=== PATIENT | male | born 1960 | race Caucasian/White ===

== ENCOUNTER 2021-09-01 11:40 | Day surgery (SDC) | payer BC ==
--- OUTSIDE RECORDS SUMMARY | 2021-08-17 16:26 | XMSREPORT | Referral Summary ---
:1960 Author Organization [facility] Address [address] [place] [address] Care Team Providers Name Role Phone Provider, Attributed RESOURCE Attributed Provider Unavailab Franco Lentz PA-C Primary Care Provider Reason for Referral Transitions of Care (Routine) Status Reason Specialty Diagnoses / Referred By Referred To Procedures Contact Contact New Request Service Not Diagnoses Screening for colon cancer Priya Mejía, Health, Chi Available at [facility] [address] [place] [id number] Phone: Fax: Reason for Visit Reason Comments Medication Management Encounter Details Date Type Department Care Team Description 08/15/2021 Office Visit [facility] Priya Mejía, COPD mixed t ype (HCC) (Primary Dx); [facility] Other polyneuropathy; [address] [place] [id number] [place] [phone] Allergies No Known Active Allergiesdocumented as of this encounter (statuses as of 08/15/2021) Medications Medication Sig Dispensed Refills Start End Date Status Date cyanocobalamin Take 1,000 mcg 0 Active (VITAMIN B-12) 1000 by mouth 1 mcg tablet time per day vitamin D3, Take 2,000 0 Active cholecalciferol, Units by mouth 2000 unit tablet 1 time per day Multiple Take 1 tablet 0 Active Vitamins-Minerals by mouth 1 (MULTIVITAMIN time per day THERAPEUTIC WITH MINERALS) tablet nicotine polacrilex Place 1 27 each Active (NICOTINE MINI) 4 lozenge (4 mg) 0 MG LOZGIndications: into mouth Tobacco use every 2 hours as needed for smoking cessation acetaminophen Take 1,330 mg 0 Ac tive (TYLENOL 8 HOUR by mouth Every ARTHRITIS PAIN) 650 8 hours as mg CR tablet needed loratadine Take 1 tablet 90 tablet 3 04/23/20 Activ e (CLARITIN) 10 mg (10 mg) by 1 22 tabletIndications: mouth 1 time a Environmental and day as needed seasonal allergies for allergies leflunomide (ARAVA) TAKE 1 TABLET 90 tablet 0 Active 20 mg (20 MG) BY 1 tabletIndications: MOUTH 1 TIME Seropositive PER DAY rheumatoid arthritis (HCC) predniSONE 10 mg TAKE 1 TABLET 110 tablet 0 Active tabletIndications: (10 MG) BY 1 Seropositive MOUTH 1 TIME rheumatoid PER DAY MAY arthritis (HCC) INCREASE TO 20 MG DAILY FOR FLARES FOR 1-2 DAYS albuterol HFA Inhale 1 puff 1 each Ac tive (PROVENTIL,PROAIR,V orally every 4 1 ENTOLIN) 108 (90 to 6 hours as Base) MCG/ACT needed for inhalerIndications: shortness of COPD mixed type breath, (HCC) wheezing or cough Shake well before using. fluticasone-salmete Inhale 2 puffs 36 g 11 Active rol (ADVAIR HFA) orally 2 times 1 45-21 mcg/puff a day Shake inhalerIndications: well before COPD mixed type using. Rinse (HCC) mouth after use. gabapentin Take 2 tablets 180 tablet 3 Act carey (NEURONTIN) 600 mg (1,200 mg) by 1 tabletIndications: mouth every Other night at polyneuropathy bedtime nicotine (NICODERM) Apply 1 patch 28 each Discontinued 21 mg/24hr (21 mg) to the 0 21 (Pat ient [id number]: skin every di scontinued Tobacco use night at medicati on) bedtime albuterol HFA Inhale 1 puff 1 each 4 08/15/20 Di scontinued (PROVENTIL,PROAIR,V orally every 4 1 21 (Reorder) ENTOLIN) 108 (90 to 6 hours as Base) MCG/ACT needed for inhalerIndications: shortness of COPD mixed type breath, (HCC) wheezing or cough Shake well before using. fluticasone-salmete Inhale 2 puffs 36 g 2 08/15 Discontinued rol (ADVAIR HFA) orally 2 times 1 21 (Reorder) 45-21 mcg/puff a day Shake inhalerIndications: well before COPD mixed type using. Rinse (HCC) mouth after use. 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 01/01/2020 documented as of this encounter (statuses as of 08/15/2021) Immunizations Name Administration Dates Next Due Pfizer COVID-19 Vaccine 02/08/2021, 01/13/2021 Pneumococcal Polysaccharide PPSV23 04/18/2021 TDAP 04/18/2021 documented as of this encounter Social History Tobacco Use Types Packs/Day Years Used Date Current Every Day Smoker Cigarettes 1 Sta rted: 04/27/1977 Smokeless Tobacco: Former User Alcohol Use Standard Drinks/Week Comments Yes 0 (1 standard drink = 0.6 oz pure alcoho l) Alcohol Habits Answer Date Recorded How often do you have a drink containing 4 or more times a w [place] 11/23/2020 alcohol? How many drinks containing alcohol do you have 3 or 4 11/23/2020 on a typical day when you are drinking? How often do you have six or more drinks on one Not asked occasion? Comment: Not asked Sex Assigned at Date Recorded Not on file documented as of this encounter Last Filed Vital Signs Vital Sign Reading Time Taken Comments Blood Pressure 134/68 08/15/2021 6:05 PM CDT Pulse 84 08/15/2021 6:05 PM CDT Temperature 36.6 C (97.8 F) 08/15/2021 6:05 PM CDT Respiratory Rate 16 08/15/2021 6:05 PM CDT Oxygen Saturation 97% 08/15/2021 6:05 PM CDT Inhaled Oxygen Concentration - - Weight 85 kg (187 lb 6.4 oz) 08/15/2021 6:05 PM CDT Height 184.2 cm (6' 0.5") 08/15/2021 6:05 PM CDT Body Mass Index 25.07 08/15/2021 6:05 PM CDT documented in this encounter Functional Status Functional Status Response Date of Assessment Do you have difficulty with walking, balance, climbing No 11/26/2020 stairs, or had a fall in the last 3 months? documented as of this encounter Patient Instructions Patient InstructionsPriya Mejía PA-C - 08/15/2021 6:14 PM CDT Continue your gabapentin at bedtime. We can sure increase the dose if you would prefer, just give ashley call. IN ADDITION TO THIS: Aim for 64 oz of WATER each day. Take a vitamin B complex (three times daily, containing 30 mg of vitamin B6). Take a vitamin D supplement (aim for 1000 International Units). Elevate the legs for 20 mins before bedtime. Try a hot/warm shower before bedtime. Let me know if you have any concerns. Bella will be calling you tomorrow about your colonoscopy date. You have the prep instructions. COVID booster shot and flu shot here on September 08. documented in this encounter Plan of Treatment Date Type Specialty Care Team Description 09/08/2021 Immunization Family Practice Name Type Priority Associated Diagnoses Order S [facility] CLINIC REFERRAL Referral Routine Screening for colon Order ed: 08/15/2021 ENDOSCOPY NON ONE CHART cancer documented as of this encounter Visit Diagnoses Diagnosis COPD mixed type (HCC) - Primary Chronic airway obstruction, not elsewher e classified Other polyneuropathy Screening for colon cancer Special screening for malignant neoplasm s, colon documented in this encounter
[~2021-09-01 11:40] MED LIST: Midazolam 1 MG/ML 2 ML SDV ONE; Propofol 200 MG/20 ML SDV ONE
[2021-09-01] MEDS ORDERED: Sodium Chloride 0.9% 10 ML Syringe FLUSH PRN (12:15)
[2021-09-01] MEDS ORDERED: Lactated Ringers 1,000 ML IV SCH (12:15)
[2021-09-01] MEDS ORDERED: Albuterol/Ipratropium 3.0-0.5 MG/3 ML Neb Soln NEB ONE (13:24)
[2021-09-01] MEDS ORDERED: Midazolam 1 MG/ML 2 ML SDV ONE ×2 (14:03→14:05)
[2021-09-01] MEDS ORDERED: Propofol 200 MG/20 ML SDV ONE (14:05)
--- NOTE | 2021-09-01 14:14 | PCM.PN ---
- General Info Date of Service: 09/01/21 - Review of Systems Systems Review Comment:: 60-year-old male referred for his initial screening colonoscopy. He is medically stable to proceed today his recent history and physical is reviewed and no significant changes are noted. I have discussed the proposed colonoscopy with the patient. Risks such as but not limited to bleeding and GI injury reviewed. He agrees to proceed. - Patient Data Vitals - Most Recent: Last Vital Signs Temp 97.9 F 09/01/21 13:04 Pulse 87 09/01/21 13:04 Resp 18 09/01/21 13:04 BP 139/93 H 09/01/21 13:04 Pulse Ox 98 09/01/21 13:04 Weight - Most Recent: 83.915 kg Med Orders - Current: Current Medications Lactated Ringer's (Ringers, Lactated) 1,000 mls @ 125 mls/hr IV ASDIRECTED OZZIE Last Admin: 09/01/21 13:14 Dose: 125 mls/hr Documented by: Sodium Chloride (Sodium Chloride 0.9% 10 Ml Syringe) 10 ml FLUSH ASDIRECTED PRN PRN Reason: Keep Vein Open Discontinued Medications Albuterol/Ipratropium (Albuterol/Ipratropium 3.0-0.5 Mg/3 Ml Neb Soln) 3 ml NEB ONETIME ONE Stop: 09/01/21 13:25 Last Admin: 09/01/21 13:34 Dose: 3 ml Documented by: Midazolam HCl (Midazolam 1 Mg/Ml 2 Ml Sdv) Confirm Administered Dose 2 mg .ROUTE .STK-MED ONE Stop: 09/01/21 09:22 Midazolam HCl (Midazolam 1 Mg/Ml 2 Ml Sdv) Confirm Administered Dose 2 mg .ROUTE .STK-MED ONE Stop: 09/01/21 14:04 Propofol (Propofol 200 Mg/20 Ml Sdv) Confirm Administered Dose 400 mg .ROUTE .STK-MED ONE Stop: 09/01/21 09:22 Sepsis Event Note - Focused Exam Vital Signs: Vital Signs Temp Pulse Resp BP Pulse Ox 09/01/21 13:04 97.9 F 87 18 139/93 H 98 - Problem List Review Problem List Initiated/Reviewed/Updated: Yes - My Orders Last 24 Hours: My Active Orders 09/01/21 12:15 Patient Status [ADT] Routine Peripheral IV Care [RC] . DIRECTED Verify Patient Consent Obtain [RC] ASDIRECTED Lactated Ringers [Ringers, Lactated] 1,000 ml IV ASDIRECTED Sodium Chloride 0.9% [Saline Flush] 10 ml FLUSH ASDIRECTED PRN Peripheral IV Insertion Adult [OM.PC] Routine - Assessment Assessment:: Colon cancer screening - Plan Plan:: Colonoscopy
--- NOTE | 2021-09-01 14:52 | PCM.OPNOTE ---
- General Post-Op/Procedure Note Date of Surgery/Procedure: 09/01/21 Operative Procedure(s): Colonoscopy Findings: Moderate diverticulosis in the sigmoid area Moderate internal hemorrhoids Pre Op Diagnosis: Colon Cancer Screening Post-Op Diagnosis: Sigmoid Diverticulosis. Hemorrhoids Anesthesia Technique: MAC Primary Surgeon: Danie Herrera Pathology: none EBL in mLs: 0 Complications: None Condition: Good
--- NOTE | 2021-09-01 21:37 | OR ---
Date of Procedure: 09/01/2021 PREOPERATIVE DIAGNOSIS: Colon cancer screening. POSTOPERATIVE DIAGNOSIS: Sigmoid diverticulosis and hemorrhoids. OPERATION PERFORMED: Colonoscopy. INDICATIONS FOR SURGERY: This 60-year-old male is referred for his initial screening colonoscopy. He denies having any recent change in bowel pattern. He does note a family history of colon cancer in his mother. FINDINGS: No polyps were seen on today's exam. The patient does have a moderate degree of diverticulosis in the sigmoid region. Examination also notes moderate to large internal hemorrhoids. DESCRIPTION OF PROCEDURE: The patient was taken to the operating room. He was given intravenous sedation and with him in the left lateral decubitus position, digital rectal exam was performed showing no rectal masses. The Olympus colonoscope was inserted into the rectum. Retroflexed examination of the rectal canal was performed. The scope was then carefully advanced under direct visualization through the entire length of the colon until the cecum was reached. Cecal acquisition was confirmed by noting the normal internal cecal anatomy including the appendiceal orifice and the ileocecal valve. After examining the cecum, the scope was slowly withdrawn sequentially re-examining the colonic segments until the entire colon and rectum had been fully examined. The scope was removed and the patient was taken from the operating room in satisfactory condition. ESTIMATED BLOOD LOSS: 0. COMPLICATIONS: None. PROGNOSIS: Good. SAVITA Herrera MD /[id number]
== END 2021-09-01 15:39 | disposition home or self-care (01) ==
LOC: LL.SDS 11:40
PROVIDERS: ATTEND Surgery
DX: Z12.11 Encounter for screening for malignant neoplasm of colon (principal); K57.30 Diverticulosis of large intestine without perforation or abscess without bleeding; K64.8 Other hemorrhoids; J44.9 Chronic obstructive pulmonary disease, unspecified; G62.89 Other specified polyneuropathies; M06.9 Rheumatoid arthritis, unspecified; E53.8 Deficiency of other specified B group vitamins; Z80.0 Family history of malignant neoplasm of digestive organs; Z79.899 Other long term (current) drug therapy
CPT/HCPCS: 00812; J2250; J2704; J7120; J7620-GY

== ENCOUNTER 2023-02-15 16:56 | Emergency (ER) | payer BC ==
[2023-02-15 18:15] LABS: ANION GAP 7.2 meq/L (7-15); CHLORIDE,CL 102 mmol/L (98-107); SODIUM,NA 139 mmol/L (136-145)
[2023-02-15 18:20] LABS: ESTIMATED GFR 86 mL/min (>=60)
[2023-02-15] MEDS: Iopamidol 612 MG/ML 100 ML Bottle IVPUSH ONE (18:40)
== END 2023-02-15 19:15 | disposition home or self-care (01) ==
LOC: LL.ED 16:56
DX: M25.451 Effusion, right hip (principal); Z72.0 Tobacco use
CPT/HCPCS: 36415; 74177; 80053; 81001; 85025; 99284; Q9967